=== PATIENT | female | born 1980 | race Two or more races ===

== ENCOUNTER 2017-02-14 20:35 | Emergency (ER) | payer SELFPAY ==
[~2017-02-14] VITALS: Ht 170.2 cm; Wt 76.2 kg
[2017-02-14 20:53] VITALS: BP 131/92
== END 2017-02-14 21:57 | disposition home or self-care (01) ==
LOC: ER 20:45
DX: Z76.0 Encounter for issue of repeat prescription (principal); M54.5 Low back pain; G89.29 Other chronic pain; R51 Headache; Z90.710 Acquired absence of both cervix and uterus
CPT/HCPCS: 99283; A4606; Z7610

== ENCOUNTER 2017-08-14 06:33 | Emergency (ER) | payer SELFPAY ==
[~2017-08-14] VITALS: Ht 170.2 cm; Wt 77.1 kg
[2017-08-14 06:48] VITALS: BP 126/83
--- NOTE | 2017-08-14 06:58 | NUR ---
33 Y/O FEMALE PLACED IN BED 3 C/O TOOTH PAIN - RIGHT UPPER SIDE,
== END 2017-08-14 07:21 | disposition home or self-care (01) ==
LOC: ER 06:33
DX: S02.5XXA Fracture of tooth (traumatic), initial encounter for closed fracture (principal); K08.89 Other specified disorders of teeth and supporting structures; G43.909 Migraine, unspecified, not intractable, without status migrainosus; G40.909 Epilepsy, unspecified, not intractable, without status epilepticus; Z90.710 Acquired absence of both cervix and uterus; Z98.890 Other specified postprocedural states; X58.XXXA Exposure to other specified factors, initial encounter; Y93.89 Activity, other specified; Y92.89 Other specified places as the place of occurrence of the external cause; Y99.8 Other external cause status
CPT/HCPCS: A4606; Z7610